=== PATIENT | female | born 1990 | race African-American/Black ===

== ENCOUNTER 2024-04-30 09:48 | Emergency (ER) | payer MEDICAID, OTHER ==
[~2024-04-30] VITALS: Ht 165.1 cm; Wt 70.0 kg
[2024-04-30 09:55] VITALS: O2SAT 100
[2024-04-30 10:00] VITALS: BP 127/60; PULSE 89; RESP 16; TEMP 37.1; O2SAT 100
[2024-04-30 10:32] LABS: BASOPHILS % 1.1 % (0.0-2.0); HEMATOCRIT. 34.5 % (36.0-48.0); HEMOGLOBIN. 10.6 g/dL (12.0-16.0); LYMPHOCYTES % 30.3 % (20.0-50.0); MEAN CORPUSCULAR HEMOGLOBIN 22.2 pg (28.0-32.0); MEAN CORPUSCULAR HGB CONC 30.9 g/dL (31.0-37.0); MEAN CORPUSCULAR VOLUME 71.9 fL (81.0-99.0); MEAN PLATELET VOLUME 9.4 fl (7.4-10.4); MONOCYTES % 9.6 % (2.0-8.0); PLATELET 308 x1000/uL (130-400); RED BLOOD CELL COUNT 4.79 mill/uL (4.2-5.4); RED CELL DISTRIBUTION WIDTH 22.8 % (11.6-14.6); WHITE BLOOD COUNT 5.7 x1000/uL (4.5-11.0)
[2024-04-30] MEDS ORDERED: DICYCLOMINE 10 MG/5 ML ORAL SYR PO STA (10:34)
[2024-04-30] MEDS ORDERED: MAGNESIUM/ALUMINUM HYDROXIDE/SIMETHICONE 30ML UDC PO STA (10:34)
[2024-04-30 10:36] LABS: ADD RBC MORPHOLOGY YES; DIFFERENTIAL COMMENT 1
[2024-04-30] MEDS ORDERED: FAMOTIDINE 20MG TABLET PO ONE (10:45)
[2024-04-30] MEDS ORDERED: DICYCLOMINE HCL 10MG CAPSULE PO NR (10:45)
[2024-04-30 10:53] LABS: CHLORIDE 107 mEq/L (98-107); POTASSIUM 3.4 mEq/L (3.5-5.1); SODIUM 142 mEq/L (136-145)
[2024-04-30 10:54] LABS: CALCIUM 8.9 mg/dL (8.7-10.4); CARBON DIOXIDE 28 mEq/L (21-32)
[2024-04-30 10:59] LABS: CREATININE 0.9 mg/dL (0.6-1.0); GLUCOSE 61 mg/dL (70-105); UREA NITROGEN BLOOD 9 mg/dL (9-23)
[2024-04-30 11:01] LABS: ALANINE AMINOTRANSFERASE 20 IU/L (10-49); ALBUMIN 3.7 g/dL (3.2-4.8); ASPARTATE AMINOTRANSFERASE 29 IU/L (<34); BILIRUBIN TOTAL 0.2 mg/dL (0.1-1.0); PROTEIN TOTAL 7.2 g/dL (6.0-8.3)
[2024-04-30 11:02] LABS: BILIRUBIN DIRECT < 0.1 mg/dL (<=3.0); TROPONIN I HIGH SENSITIVITY < 4 ng/L (3.0-34)
[2024-04-30 11:27] LABS: CLARITY URINE CLEAR (CLEAR); COLOR URINE YELLOW (YELLOW); GLUCOSE URINE NEGATIVE (NEGATIVE); KETONES URINE TRACE (NEGATIVE); LEUKOCYTE ESTERASE URINE TRACE (NEGATIVE); NITRITE URINE NEGATIVE (NEGATIVE); OCCULT BLOOD URINE NEGATIVE (NEGATIVE); PH URINE 8.5 (4.5-8.0); PROTEIN URINE NEGATIVE (NEGATIVE); SPECIFIC GRAVITY URINE 1.026 (1.005-1.030)
[2024-04-30 11:44] LABS: MUCUS URINE TRACE /lpf (< = 2+); SQUAMOUS EPITHELIAL CELL URINE 3+ /lpf (RARE/1+)
[2024-04-30 11:45] LABS: WBC URINE 0-2 /hpf (0-2)
[2024-04-30 11:48] LABS: RBC URINE NONE SEEN /hpf (0-2)
[2024-04-30 11:49] LABS: BACTERIA URINE TRACE
[2024-04-30 16:12] LABS: ANISOCYTOSIS 2+; HYPOCHROMASIA 1+; MICROCYTOSIS 2+; PLATELET ESTIMATE NORMAL
== END 2024-04-30 11:47 | disposition left against medical advice (07) ==
LOC: ER 09:48
DX: R07.89 Other chest pain (principal); Z98.890 Other specified postprocedural states
CPT/HCPCS: 36415; 71045; 80053; 80076; 81003; 81025; 84484; 85025; 93005; 99285

== ENCOUNTER 2024-04-30 18:42 | Emergency (ER) | payer MEDICAID ==
[~2024-04-30] VITALS: Ht 165.1 cm; Wt 60.0 kg
[2024-04-30 18:45] VITALS: O2SAT 99
[2024-04-30 18:55] VITALS: BP 117/62; PULSE 86; RESP 15; TEMP 37.1; O2SAT 98
== END 2024-04-30 21:26 | disposition home or self-care (01) ==
LOC: ER 18:42
DX: R10.9 Unspecified abdominal pain (principal); R07.89 Other chest pain; F10.90 Alcohol use, unspecified, uncomplicated; Y90.9 Presence of alcohol in blood, level not specified
CPT/HCPCS: 99281